=== PATIENT | female | born 1970 | race Two or more races ===

== ENCOUNTER 2020-08-05 07:58 | Emergency (ER) | payer OTHER ==
[~2020-08-05] VITALS: Ht 157.5 cm; Wt 86.2 kg
[2020-08-05] MEDS ORDERED: ALTACE5 MG PO (08:06)
== END 2020-08-05 11:27 | disposition home or self-care (01) ==
LOC: ER 07:58
DX: K62.5 Hemorrhage of anus and rectum (principal)

== ENCOUNTER 2022-04-07 15:19 | Outpatient (CLI) | payer OTHER ==
[~2022-04-07 15:19] MED LIST: ALTACE5 MG PO
== END 2022-04-07 15:24 | disposition home or self-care (01) ==
LOC: LAB 15:19
PROVIDERS: ATTEND Obstetrics & Gynecology
DX: Z20.828 Contact with and (suspected) exposure to other viral communicable diseases (principal); Z20.818 Contact with and (suspected) exposure to other bacterial communicable diseases